=== PATIENT | female | born 1960 | race Hispanic/Latino ===

== ENCOUNTER 2023-01-31 00:01 | Observation (INO) | payer OTHER ==
[2023-01-31] MEDS ORDERED: ONDANSETRON 4 MG/2 ML VIAL ONE (01:22)
[2023-01-31] MEDS ORDERED: NA CHLORIDE 0.9% 1,000 ML ONE (01:22)
[2023-01-31] MEDS ORDERED: MORPHINE 2 MG/ML SYR ONE (01:22)
[2023-01-31] MEDS ORDERED: PANTOPRAZOLE 40 MG INJ ONE (01:22)
[2023-01-31 01:29] LABS: Absolute Lymphocytes (CBC) 2.1 K/uL (0.7-4.9); Hematocrit 34.8 % (36.0-45.0); Lymphocytes % 15.5 % (15.3-44.8); MCV 89.2 fL (80-100)
[2023-01-31 01:36] LABS: Protime INR 1.09
[2023-01-31 01:54] LABS: Albumin 4.1 g/dL (3.4-5.0); Bilirubin Direct 0.2 mg/dL (0-0.2); Bilirubin Indirect, Calculated 0.4 mg/dL (0.2-0.8); Bilirubin Total 0.6 mg/dL (0.2-1.0); Potassium 3.6 mEq/L (3.5-5.1); Protein, Total 7.6 g/dL (6.4-8.2); Troponin High Sensitivity 3.1 pg/mL (<58.9)
[2023-01-31] MEDS ORDERED: Magnesium Sulfate 2gm IVPB 2 G/50 ML BAG IV ONE (03:07)
--- NOTE | 2023-01-31 04:15 | ER ---
Nurse's Notes [facility] Name: Radha Greene Age: 62 yrs Sex: Female : 1960 Arrival Date: 01/31/2023 Time: 00:01 Bed 15 Private MD: Diagnosis: Hypo-osmolality and hyponatremia;Hypomagnesemia;Nausea with vomiting, unspecified Presentation: 01/31 00:16 Chief complaint: Patient's son or daughter states: granddaughter states, that her blood vc1 pressure was high 176/79 she already took her blood pressure medicine. She's been having really horrible headaches. really nauseous, has the shakes, and has been vomiting. She went to the Dr. today and they didn't find anything wrong. They gave her famotadine. Coronavirus screen: Vaccine status: Patient reports receiving the 2nd dose of the covid vaccine. plus two boosters; [employer] Client denies travel out of the [place] in the last 14 days. At this time, the client does not indicate any symptoms associated with coronavirus-19. Ebola Screen: Patient negative for fever greater than or equal to 101.5 degrees Fahrenheit, and additional compatible Ebola Virus Disease symptoms Patient denies exposure to infectious person. Patient denies travel to an Ebola-affected area in the 21 days before illness onset. No symptoms or risks identified at this time. Initial Sepsis Screen: Does the patient meet any 2 criteria? No. Patient's initial sepsis screen is negative. Does the patient have a suspected source of infection? No. Patient's initial sepsis screen is negative. Risk Assessment: Do you want to hurt yourself or someone else? Patient reports no desire to harm self or others. Onset of symptoms is unknown. 00:16 Method Of Arrival: Ambulatory vc1 00:16 Acuity: KYLIE 3 vc1 Triage Assessment: 00:29 General: Appears in no apparent distress. uncomfortable, ill, Behavior is calm, vc1 cooperative, appropriate for age. Pain: Complains of pain in forehead, occipital area and epigastric area Pain does not radiate. Pain currently is 10 out of 10 on a pain scale. Quality of pain is described as pressure. EENT: No deficits noted. No signs and/or symptoms were reported regarding the EENT system. Neuro: Reports headache. Cardiovascular: No deficits noted. Respiratory: Airway is patent Respiratory effort is even, unlabored, Respiratory pattern is regular, symmetrical. GI: Reports upper abdominal pain, diarrhea, epigastric pain, nausea, vomiting. : No deficits noted. No signs and/or symptoms were reported regarding the genitourinary system. Derm: No deficits noted. No signs and/or symptoms reported regarding the dermatologic system. Musculoskeletal: No deficits noted. No signs and/or symptoms reported regarding the musculoskeletal system. Historical: - Allergies: 00:25 No Known Allergies; vc1 - Home Meds: 00:25 Metformin Oral [Active]; amlodipine oral [Active]; Metoprolol Tartrate Oral [Active]; vc1 Hydrochlorothiazide Oral [Active]; Lisinopril Oral [Active]; - PMHx: 00:25 Hypertensive disorder; Diabetes mellitus; Anxiety; Depressive disorder; vc1 - PSHx: 00:25 section; vc1 - Immunization history:: Client reports receiving the 2nd dose of the Covid vaccine. - Social history:: Smoking status: Patient denies any tobacco usage or history of. Screenin:29 Abuse screen: Denies threats or abuse. Nutritional screening: No deficits noted. vc1 Tuberculosis screening: No symptoms or risk factors identified. 01:04 [facility] ED Fall Risk Assessment (Adult) History of falling in the last 3 months, lg3 including since admission No falls in past 3 months (0 pts). Assessment: 01:04 General: Appears in no apparent distress. comfortable, Behavior is calm, cooperative. lg3 Pain: Complains of pain in abdomen and face and occipital area. Neuro: No deficits noted. Mendoza Agitation-Sedation Scale (RASS): 0 - Alert and Calm Level of Consciousness is awake, alert, obeys commands, Oriented to person, place, time, situation. Cardiovascular: No deficits noted. Reports chest pain, lightheadedness, nausea, shortness of breath, Capillary refill < 3 seconds Clubbing of nail beds is absent JVD is absent Patient's skin is warm and dry. Respiratory: No deficits noted. Airway is patent Respiratory effort is even, unlabored, Respiratory pattern is regular, symmetrical. GI: No deficits noted. Abdomen is round non-distended, Reports upper abdominal pain, cramping, epigastric pain, nausea, vomiting. : No deficits noted. No signs and/or symptoms were reported regarding the genitourinary system. EENT: No deficits noted. No signs and/or symptoms were reported regarding the EENT system. Derm: No deficits noted. No signs and/or symptoms reported regarding the dermatologic system. Skin is intact, is healthy with good turgor, Skin is dry, Skin is normal, Skin temperature is warm. Musculoskeletal: No deficits noted. Circulation, motion, and sensation intact. Range of motion: intact in all extremities, Reports generalized weakness. 01:57 Reassessment: Patient appears in no apparent distress at this time. No changes from lg3 previously documented assessment. Patient and/or family updated on plan of care and expected duration. Pain level reassessed. Patient is alert, oriented x 3, equal unlabored respirations, skin warm/dry/pink. 05:36 Reassessment: Patient appears in no apparent distress at this time. No changes from lg3 previously documented assessment. Patient and/or family updated on plan of care and expected duration. Pain level reassessed. Patient is alert, oriented x 3, equal unlabored respirations, skin warm/dry/pink. Patient states feeling better. Patient states symptoms have improved. Vital Signs: 00:16 BP 150 / 77; Pulse 81; Resp 15; Temp 98.4; Pulse Ox 100% ; Weight 81.65 kg; Height 5 vc1 ft. 0 in. ; Pain 10/10; 01:57 BP 130 / 62; Pulse 69; Resp 16 S; Pulse Ox 100% on R/A; lg3 03:56 BP 116 / 61; Pulse 71; Resp 15 S; Pulse Ox 99% on R/A; lg3 05:36 BP 123 / 59; Pulse 69; Resp 16; Pulse Ox 99% on R/A; lg3 00:16 Body Mass Index 35.15 (81.65 kg, 152.4 cm) vc1 00:16 Pain Scale: Adult vc1 ED Course: 00:05 Patient arrived in ED. jj6 00:08 Des Singleton PA is PHCP. cp 00:08 Mehran Vergara MD is Attending Physician. cp 00:25 Triage completed. vc1 00:29 Arm band placed on left wrist. vc1 00:58 Emma Sheets, ZHENG is Primary Nurse. lg3 01:04 Patient has correct armband on for positive identification. Placed in gown. Bed in low lg3 position. Call light in reach. Side rails up X 1. Client placed on continuous cardiac and pulse oximetry monitoring. NIBP monitoring applied. air sampling and monitoring on. Door closed. Noise minimized. Warm blanket given. Family accompanied patient. 01:15 Basic Metabolic Panel Sent. lg3 01:15 CBC with Diff Sent. lg3 01:15 LFT's Sent. lg3 01:15 Magnesium Sent. lg3 01:15 PT-INR Sent. lg3 01:16 Troponin HS Sent. lg3 01:25 Inserted saline lock: 20 gauge in right wrist, using aseptic technique. Blood collected.lg3 01:48 XRAY Chest (1 view) In Process Unspecified. EDMS 01:59 Notified Nurse Practitioner and/or Physician Senior Payroll Manager of a critical lab result(s), Mag kl 1.0. 02:43 CT Abd/Pelvis - IV Contrast Only In Process Unspecified. EDMS 02:43 CT Head Brain wo Cont In Process Unspecified. EDMS 04:08 TSH Sent. lg3 04:08 Lipase Sent. lg3 04:14 Arvind Viveros MD is Hospitalizing Provider. cp 04:15 Octaviano Valdovinos MD is Hospitalizing Provider. la1 04:47 Arvind Viveros MD is Hospitalizing Provider. la1 05:37 No provider procedures requiring assistance completed. Patient admitted, IV remains in lg3 place. intact, No redness/swelling at site. Administered Medications: 01:25 Drug: NS 0.9% IV 500 ml Route: IV; Rate: 125 ml/hr; Site: right wrist; lg3 01:26 Drug: Ondansetron IVP 4 mg Route: IVP; Site: right wrist; lg3 02:44 Follow up: Response: No adverse reaction; Marked relief of symptoms lg3 01:26 Drug: morphine IVP or IV 2 mg Route: IVP; Infused Over: 4 mins; Site: right wrist; lg3 02:44 Follow up: Response: No adverse reaction; Marked relief of symptoms lg3 01:26 Drug: NS 0.9% IV 500 ml Route: IV; Rate: bolus; Site: right wrist; lg3 02:43 Follow up: Response: No adverse reaction; IV Status: Completed infusion; IV Intake: lg3 500ml 01:27 Drug: Pantoprazole IVP 40 mg Route: IVP; Site: right wrist; lg3 02:44 Follow up: Response: No adverse reaction; Marked relief of symptoms lg3 03:00 Drug: Magnesium Sulfate IVPB 2 grams Route: IVPB; Infused Over: 2 hrs; Site: right pf1 wrist; Medication: 05:36 VIS not applicable for this client. lg3 Intake: 02:43 IV: 500ml; Total: 500ml. lg3 Outcome: 04:14 Decision to Hospitalize by Provider. cp 05:37 Admitted to Med/surg accompanied by tech, via wheelchair, room 427, Report called to 3 Daly 05:37 Condition: stable 05:37 Instructed on the need for admit, Demonstrated understanding of instructions. 05:38 Patient left the ED. 3 Signatures: Dispatcher [employer] EDMS Bebe Box, Jb Cervantes RN, LOFTER-C LOFTER-Cla1 Des Singleton PA PA cp Gibson, Lacie, RN RN lg3 Deandra Sales [email or web address] Maryjo Cardenas RN RN vc1 Taisha Brewer RN RN pf1 Corrections: (The following items were deleted from the chart) 00:29 00:25 PSHx: None; vc1 vc1 03:11 03:00 Magnesium Sulfate IVPB 2 grams IVPB in right antecubital over 2 hrs pf1 pf1
--- NOTE | 2023-01-31 04:15 | EDPHYS ---
Physician Documentation [facility] Name: Radha Greene Age: 62 yrs Sex: Female : 1960 Arrival Date: 01/31/2023 Time: 00:01 Bed 15 Private MD: ED Physician Mehran Vergara HPI: 01/31 01:00 This 62 yrs old Female presents to ER via Ambulatory with complaints of High Blood cp Pressure, General Weakness. 01:00 The patient has elevated blood pressure and discovered this at home, with a home device.cp 01:00 Onset: The symptoms/episode began/occurred today. Associated signs and symptoms: cp Pertinent positives: chest pain, headache, nausea, vomiting, weakness. 01:00 Severity of symptoms: At its worst the blood pressure was 176 mm Hg. cp Historical: - Allergies: 00:25 No Known Allergies; vc1 - Home Meds: 00:25 Metformin Oral [Active]; amlodipine oral [Active]; Metoprolol Tartrate Oral [Active]; vc1 Hydrochlorothiazide Oral [Active]; Lisinopril Oral [Active]; - PMHx: 00:25 Hypertensive disorder; Diabetes mellitus; Anxiety; Depressive disorder; vc1 - PSHx: 00:25 section; vc1 - Immunization history:: Client reports receiving the 2nd dose of the Covid vaccine. - Social history:: Smoking status: Patient denies any tobacco usage or history of. ROS: 01:05 Constitutional: Negative for fever. cp 01:05 Eyes: Negative for injury, pain, redness, and discharge. cp 01:05 ENT: Negative for drainage from ear(s), ear pain, sore throat, difficulty swallowing, difficulty handling secretions. 01:05 Cardiovascular: Positive for chest pain. 01:05 Respiratory: Negative for cough, shortness of breath, wheezing. 01:05 Abdomen/GI: Positive for nausea and vomiting, Negative for diarrhea, constipation. 01:05 Skin: Negative for rash. 01:05 Neuro: Positive for weakness, Negative for altered mental status, numbness, syncope. 01:05 All other systems are negative. Exam: 01:08 ECG was reviewed by the Attending Physician. cp 01:10 Constitutional: The patient appears in no acute distress, alert, awake, cp non-diaphoretic, non-toxic, well developed, well nourished. 01:10 Head/Face: Normocephalic, atraumatic. cp 01:10 Eyes: Periorbital structures: appear normal, Pupils: equal, round, and reactive to light and accomodation, Extraocular movements: intact throughout, Conjunctiva: normal, no exudate, no injection, Sclera: no appreciated abnormality, Lids and lashes: appear normal, bilaterally. 01:10 ENT: External ear(s): are unremarkable, Nose: is normal, Mouth: Lips: moist, Oral mucosa: pink and intact, moist, Posterior pharynx: is normal, airway is patent, no erythema, no exudate. 01:10 Neck: ROM/movement: is normal, is supple, without pain, no range of motions limitations. 01:10 Chest/axilla: Inspection: normal. 01:10 Cardiovascular: Rate: normal, Rhythm: regular, Edema: is not appreciated, JVD: is not appreciated. 01:10 Respiratory: the patient does not display signs of respiratory distress, Respirations: normal, no use of accessory muscles, no retractions, labored breathing, is not present, Breath sounds: are clear throughout, no decreased breath sounds, no stridor, no wheezing. 01:10 Abdomen/GI: Inspection: abdomen appears normal, Bowel sounds: active, all quadrants, Palpation: soft, in all quadrants, mild abdominal tenderness, in the epigastric area and left upper quadrant, rebound tenderness, is not appreciated, involuntary guarding, is not appreciated. 01:10 Back: CVA tenderness, is absent. 01:10 Skin: cellulitis, is not appreciated, no rash present. 01:10 Neuro: Orientation: to person, place \T\ time. Mentation: is normal, Motor: moves all fours, strength is normal, Sensation: is normal. Vital Signs: 00:16 BP 150 / 77; Pulse 81; Resp 15; Temp 98.4; Pulse Ox 100% ; Weight 81.65 kg; Height 5 vc1 ft. 0 in. ; Pain 10; 01:57 BP 130 / 62; Pulse 69; Resp 16 S; Pulse Ox 100% on R/A; lg3 03:56 BP 116 / 61; Pulse 71; Resp 15 S; Pulse Ox 99% on R/A; lg3 05:36 BP 123 / 59; Pulse 69; Resp 16; Pulse Ox 99% on R/A; lg3 00:16 Body Mass Index 35.15 (81.65 kg, 152.4 cm) vc1 00:16 Pain Scale: Adult vc1 MDM: 00:24 Patient medically screened. cp 04:15 Data reviewed: vital signs, nurses notes, lab test result(s), EKG, radiologic studies, cp CT scan, plain films. 04:15 Consideration of Admission/Observation Patient was admitted/placed on observation. cp Management of patient was discussed with the following: Hospitalist: Jb Del Castillo NP will admit after discussion. I considered the following discharge prescriptions or medication management in the emergency department Medications were administered in the Emergency Department. See MAR. Independent interpretation of the following test(s) in the Emergency Department EKG: See my EKG interpretation above. Care significantly affected by the following chronic conditions: Diabetes, Hypertension. Counseling: I had a detailed discussion with the patient and/or guardian regarding: the historical points, exam findings, and any diagnostic results supporting the discharge/admit diagnosis, lab results, radiology results, the need for further work-up and treatment in the hospital. 01/31 00:46 Order name: Basic Metabolic Panel; Complete Time: 02:49 cp 01/31 02:49 Interpretation: Normal except: NA 125; CL 94; CO2 20; GLUC 132; BUN 21; CRE 1.08; GFR cp 58. 01/31 00:46 Order name: CBC with Diff; Complete Time: 02:49 cp 01/31 02:49 Interpretation: Normal except: WBC 13.30; HGB 11.5; HCT 34.8; SHEILA% 76.2; NEUT A 10.2. cp 01/31 00:46 Order name: LFT's; Complete Time: 02:49 cp 01/31 00:46 Order name: Magnesium; Complete Time: 02:49 cp 01/31 00:46 Order name: PT-INR; Complete Time: 02:49 cp 01/31 00:46 Order name: Troponin HS; Complete Time: 02:49 cp 01/31 04:03 Order name: Urine Osmolality la1 01/31 04:03 Order name: Urine Sodium Random la1 01/31 04:03 Order name: UAM la1 01/31 04:03 Order name: Osmolality, Serum; Complete Time: 04:43 la1 01/31 04:03 Order name: Lipase; Complete Time: 04:43 la1 01/31 04:04 Order name: TSH; Complete Time: 04:43 la1 01/31 00:46 Order name: XRAY Chest (1 view) cp 01/31 00:46 Order name: CT Abd/Pelvis - IV Contrast Only cp 01/31 00:46 Order name: CT Head Brain wo Cont cp 01/31 00:46 Order name: EKG; Complete Time: 00:48 cp 01/31 00:46 Order name: Cardiac monitoring; Complete Time: 01: cp 01/31 00:46 Order name: EKG - Nurse/Tech; Complete Time: 01:09 cp 01/31 00:46 Order name: IV Saline Lock; Complete Time: 01:15 cp 01/31 00:46 Order name: Labs collected and sent; Complete Time: 01:15 cp 01/31 00:46 Order name: O2 Per Protocol; Complete Time: 01: cp 01/31 00:46 Order name: O2 Sat Monitoring; Complete Time: 01:09 cp EC:08 Rate is 83 beats/min. Rhythm is regular. SC interval is normal. QRS interval is normal. cp QT interval is normal. T waves are Inverted in lead aVR. Interpreted by me. Reviewed by me. Administered Medications: 01:25 Drug: NS 0.9% IV 500 ml Route: IV; Rate: 125 ml/hr; Site: right wrist; lg3 01:26 Drug: Ondansetron IVP 4 mg Route: IVP; Site: right wrist; lg3 02:44 Follow up: Response: No adverse reaction; Marked relief of symptoms lg3 01:26 Drug: morphine IVP or IV 2 mg Route: IVP; Infused Over: 4 mins; Site: right wrist; lg3 02:44 Follow up: Response: No adverse reaction; Marked relief of symptoms lg3 01:26 Drug: NS 0.9% IV 500 ml Route: IV; Rate: bolus; Site: right wrist; lg3 02:43 Follow up: Response: No adverse reaction; IV Status: Completed infusion; IV Intake: lg3 500ml 01:27 Drug: Pantoprazole IVP 40 mg Route: IVP; Site: right wrist; lg3 02:44 Follow up: Response: No adverse reaction; Marked relief of symptoms lg3 03:00 Drug: Magnesium Sulfate IVPB 2 grams Route: IVPB; Infused Over: 2 hrs; Site: right pf1 wrist; Disposition: 19:30 Co-signature as Attending Physician, Mehran Vergara MD I agree with the assessment and kdr plan of care. Disposition Summary: 01/31/23 04:14 Hospitalization Ordered Hospitalization Status: Inpatient Admission cp Location: Telemetry/MedSurg (observation) cp Condition: Stable cp Problem: new cp Symptoms: have improved cp Bed/Room Type: Standard cp Room Assignment: [facility](01/31/23 04:44) Provider: Arvind Viveros(01/31/23 04:47) [email or web address] Diagnosis - Hypo-osmolality and hyponatremia cp - Hypomagnesemia cp - Nausea with vomiting, unspecified cp Forms: - Medication Reconciliation Form cp - SBAR form cp Signatures: Dispatcher [employer] EDMS Mehran Vergara MD MD kdr Jb Del Castillo, LAY OUT INSPECTOR-C LAY OUT INSPECTOR-Cla1 Des Singleton PA PA cp Garcia, Cindy, RN RN cg Emma Sheets RN RN lg3 Maryjo Cardenas RN RN vc1 Taisha Brewer RN RN pf1 Corrections: (The following items were deleted from the chart) 00:29 00:25 PSHx: None; vc1 vc1 04:15 04:14 Arvind Viveros cp la1 04:44 04:14 cp cg 04:47 04:15 Octaviano Valdovinos la1 la1 02/01 05:25 07/09 01:00 Associated signs and symptoms: Pertinent positives: headache, nausea, cp vomiting, cp
[2023-01-31 04:31] LABS: Thyroid Stimulating Hormone 2.18 uIU/mL (0.358-3.740)
--- NOTE | 2023-01-31 04:55 | P.HP ---
Certification for Inpatient Patient admitted to: Inpatient With expected LOS: >2 Midnights Patient will require the following post-hospital care: None Practitioner: I am a practitioner with admitting privileges, knowledge of patient current condition, hospital course, and medical plan of care. Services: Services provided to patient in accordance with Admission requirements found in Title 42 Section 412.3 of the Code of Federal Regulations <MagdaleneJb Milligan - Last Filed: 01/31/23 04:51> Patient History Date of Service: 01/31/23 Reason for admission: Hyponatremia, hypomagnesemia History of Present Illness: 62-year-old female with history of [id number] diabetes, hypertension, hyperlipidemia, neuropathy presents to the emergency department chief complaint of nausea, vomiting, tremors, headache, hypertension. She reports for the past 3 days or so she has been having some mild abdominal pain as well as diarrhea, nausea. In the past she has been diagnosed with gastritis. She was evaluated in the emergency department her labs were significant for hyponatremia sodium 125 chloride 94 bicarb 20 serum osmolality 264 magnesium 1.0 white blood cell count 13.3 hemoglobin 11.[address] abdomen pelvis was performed which was negative for acute findings, CT head also negative for acute findings. No medications reviewed patient does take hydrochlorothiazide in addition to other antihypertensive agents. This is likely contributing to her symptoms/hyponatremia. In the ER she was given Pr otonix, 500 cc NS bolus, NS at 125 an hour, Zofran, morphine, 2 g of IV magnesium her symptoms have improved at this time. ED provider wishes to admit for hyponatremia, hypomagnesemia, nausea/vomiting. - Past Medical/Surgical History -: Mgg-[id number] diabetes -: Hypertension -: Hyperlipidemia -: Gastritis -: Neuropathy Past Surgical History: Reviewed- Non-Contributory Psychosocial/ Personal History: Patient lives in [place], is here visiting family. - Family History Family History: Reviewed- Non-Contributory - Social History Smoking Status: Never smoker Alcohol use: No CD- Drugs: No Caffeine use: Yes Place of Residence: Home <Jb Del Castillo - Last Filed: 01/31/23 04:51> Date of Service: 01/31/23 <Arvind Viveros - Last Filed: 01/31/23 16:37> Review of Systems 10-point ROS is otherwise unremarkable Gastrointestinal: Nausea, Abdominal Pain, Diarrhea, Distention Genitourinary: Frequency <Jb Del Castillo - Last Filed: 01/31/23 04:51> Physical Examination - Physical Exam General: Alert, In no apparent distress, Oriented x3, Obese HEENT: Atraumatic, PERRLA, Mucous membr. moist/pink, EOMI, Sclerae nonicteric Neck: Supple, 2+ carotid pulse no bruit, No LAD, Without JVD or thyroid abnormality Respiratory: Clear to auscultation bilaterally, Normal air movement Cardiovascular: Regular rate/rhythm, Normal S1 S2 Capillary refill: <2 Seconds Gastrointestinal: Normal bowel sounds, Tenderness (Mild generalized abdominal tenderness, worse left upper quadrant) Musculoskeletal: No tenderness Integumentary: No rashes Neurological: Normal speech, Normal strength at 5/5 x4 extr, Normal tone, Normal affect - Studies Laboratory Data (last 24 hrs) 01/31/23 01:15: Lipase 48 01/31/23 01:15: PT 12.0, INR 1.09 01/31/23 01:15: WBC 13.30 H, Hgb 11.5 L, Hct 34.8 L, Plt Count 292 01/31/23 01:15: Sodium 125 L, Potassium 3.6, BUN 21 H, Creatinine 1.08 H, Glucose 132 H, Magnesium 1.0 L*, Total Bilirubin 0.6, AST 30, ALT 44, Alkaline Phosphatase 46 <Jb Del Castillo - Last Filed: 01/31/23 04:51> - Studies Laboratory Data (last 24 hrs) 01/31/23 01:15: Lipase 48 01/31/23 01:15: PT 12.0, INR 1.09 01/31/23 01:15: WBC 13.30 H, Hgb 11.5 L, Hct 34.8 L, Plt Count 292 01/31/23 01:15: Sodium 125 L, Potassium 3.6, BUN 21 H, Creatinine 1.08 H, Glucose 132 H, Magnesium 1.0 L*, Total Bilirubin 0.6, AST 30, ALT 44, Alkaline Phosphatase 46 <Arvind Viveros - Last Filed: 01/31/23 16:37> Assessment and Plan - Plan Assessment: Hyponatremia, hypomagnesemia Nausea/vomiting/diarrhea Diabetes mellitus type [id number] Hypertension Hyperlipidemia Neuropathy Plan: Hyponatremia, hypomagnesemia Nausea/vomiting/diarrhea Hydrochlorothiazide likely contributing, will hold this medication. Also poor oral intake with nausea recently she has had gastritis in the past. Continue IV Protonix twice daily, CT negative for acute findings. Counseled to follow-up with GI when she is back to [place] plan for endoscopy. Clear liquid diet, advance as tolerated. Continue gentle NS with repeat chemistries this morning, magnesium replaced in ED, protocol in place. We will repeat with chemistries morning. Diabetes mellitus type [id number] ACHS Accu-Chek, sign scale insulin. Hypertension Home medication continued, hydrochlorothiazide being held, may need increase of her dose of other home medications, possibly amlodipine or metoprolol succinate. We will need to monitor blood pressure to determine need. Hyperlipidemia Statin continued Neuropathy Gabapentin continued. DVT PPX: Lovenox Code status: Full Discharge Plan: Home Plan to discharge in: 48 Hours - Advance Directives Does patient have a Living Will: No Does patient have a Durable POA for Healthcare: No - Code Status/Comfort Care Code Status Assessed: Yes (Full code) Critical Care: No Time Spent Managing Pts Care (In Minutes): 55 <Jb Del Castillo - Last Filed: 01/31/23 04:51> - Plan Patient seen and examined on rounds this morning. She reports no bowel movement since arrival to the floor. Has not vomited since admission, continues with some slight nausea, but overall feels she is improving No abdominal tenderness on exam, blood pressure low/borderline Hold antihypertensives Patient able to tolerate liquid diet, advance as tolerated DC IV fluids KATELYN resolved, hyponatremia improved Recheck BMP this evening Potential discharge home tomorrow <Arvind Viveros - Last Filed: 01/31/23 16:37>
[2023-01-31 05:24] LABS: Specific Gravity 1.014 (1.005-1.030); Urine Bacteria None Seen /HPF (<20); Urine Bilirubin NEGATIVE (Negative); Urine Blood Negative (Negative); Urine Clarity Clear (Clear); Urine Color Colorless (Yellow); Urine Glucose NEGATIVE (Negative); Urine Protein NEGATIVE (Negative); Urine RBC None Seen /HPF (None Seen); Urine Urobilinogen Normal (Normal)
[2023-01-31] MEDS ORDERED: SODIUM CHLORIDE 0.9% 10ML INJ IV PRN (05:32)
[2023-01-31] MEDS ORDERED: NA CHLORIDE 0.9% 1,000 ML IV SCH (05:32)
[2023-01-31] MEDS ORDERED: ONDANSETRON 4 MG/2 ML VIAL IV PRN (05:32)
[2023-01-31] MEDS: METOPROLOL XL 50 MG TAB PO SCH (05:49)
[2023-01-31 06:44] VITALS: O2SAT 98; BMI 35.4
--- NOTE | 2023-01-31 07:28 | P.PN ---
Date of Service: 02/01/23 Subjective: ROS: 10 point ROS as noted above, otherwise negative Physical Exam: GEN: Alert, oriented, NAD HEENT: Normal conjunctiva, sclera anicteric CV: Regular rate and rhythm, no edema Pulm: Nonlabored respirations on room air ABD: Soft, nontender, nondistended MSK: No joint tenderness Integumentary: No rashes Neuro: Normal speech, normal affect vitals reviewed Problem List: Hyponatremia, hypomagnesemia Nausea/vomiting/diarrhea NIDDM2 Hypertension Hyperlipidemia Neuropathy Hyponatremia, hypomagnesemia Nausea/vomiting/diarrhea HCTZ likely contributing, will hold this medication. Also poor oral intake with nausea recently she has had gastritis in the past. Counseled to follow-up with GI when she is back to [place] plan for endoscopy. CT abdomen (01/31): negative for acute findings. Continue IV Protonix twice daily Clear liquid diet, advance as tolerated. repeat labs Hypertension continue home medications, may need increase of her dose of other home medications, possibly amlodipine or metoprolol succinate. hold HCTZ NIDDM2 ACHS Accu-Chek, SSI Hyperlipidemia continue statin Neuropathy Continue gabapentin VTE: Lovenox Code: Full Dispo: home ~2 days
[2023-01-31] MEDS: INSULIN -REGULAR HUMAN 50 UNIT/0.5 ML ML SQ SCH ×4 (07:30→21:00)
[2023-01-31] MEDS ORDERED: ACETAMINOPHEN 500 MG TAB PO PRN (07:32)
[2023-01-31] MEDS: ENOXAPARIN 40 MG/0.4 ML SQ SCH (07:59)
[2023-01-31] MEDS: ASPIRIN EC 81 MG TAB PO SCH (08:00)
[2023-01-31] MEDS: GABAPENTIN 300 MG CAP PO SCH ×3 (08:00→21:01)
[2023-01-31 08:28] LABS: Magnesium 1.9 mg/dL (1.6-2.4); Potassium 3.9 mEq/L (3.5-5.1); Troponin High Sensitivity 5.7 pg/mL (<58.9)
[2023-01-31] MEDS: AMLODIPINE 2.5 MG TAB PO SCH (09:00)
[2023-01-31] MEDS ORDERED: lisinopriL 20 MG TAB PO SCH (09:00)
[2023-01-31] MEDS: PANTOPRAZOLE 40 MG INJ IVP SCH ×2 (09:31→21:01)
[2023-01-31 15:37] LABS: Potassium 4.6 mEq/L (3.5-5.1); Troponin High Sensitivity 4.3 pg/mL (<58.9)
[2023-01-31] MEDS ORDERED: ATORVASTATIN 10 MG TAB PO SCH (21:00)
[2023-02-01] MEDS: METOPROLOL XL 50 MG TAB PO SCH (05:30)
[2023-02-01 06:57] LABS: Absolute Lymphocytes (CBC) 2.2 K/uL (0.7-4.9); Hematocrit 35.1 % (36.0-45.0); Lymphocytes % 32.4 % (15.3-44.8); MCV 90.2 fL (80-100); MPV 8.1 fL (7.6-11.3); RBC Red Blood Cell Count 3.89 M/uL (3.86-4.86)
[2023-02-01 07:07] LABS: Magnesium 1.8 mg/dL (1.6-2.4); Potassium 4.6 mEq/L (3.5-5.1)
[2023-02-01] MEDS ORDERED: NA CHLORIDE 0.9% 500 ML IV ONE (07:14)
[2023-02-01] MEDS: INSULIN -REGULAR HUMAN 50 UNIT/0.5 ML ML SQ SCH (07:30)
--- NOTE | 2023-02-01 07:58 | P.DS ---
Admission Date: 01/31/23 Discharge Date: 02/01/23 Reason for Admission: Hyponatremia, hypomagnesemia Brief History of Present Illness: 62 yo F, PMH: [id number] diabetes, hypertension, hyperlipidemia, neuropathy Patient presents to the emergency department chief complaint of nausea, vomiting, tremors, headache, hypertension. She reports for the past 3 days or so she has been having some mild abdominal pain as well as diarrhea, nausea. In the past she has been diagnosed with gastritis. She was evaluated in the emergency department her labs were significant for hyponatremia sodium 125 chloride 94 bicarb 20 serum osmolality 264 magnesium 1.0 white blood cell count 13.3 hemoglobin 11.5 urinalysis is pending Imaging was negative for acute findings. Patient does take hydrochlorothiazide in addition to other antihypertensive agents. This is likely contributing to her symptoms/hyponatremia. In the ER she was given Protonix, 500 cc NS bolus, NS at 125 an hour, Zofran, morphine, 2 g of IV magnesium her symptoms have improved at this time. Hospital Course: Problem List: Hyponatremia, hypomagnesemia Nausea/vomiting/diarrhea NIDDM2 Hypertension Hyperlipidemia Neuropathy Patient presented with nausea, vomiting, diarrhea. CT Abdomen/Head were both negative for any acute findings. She was found to be hyponatremic with a mild elevation of her Creatinine. She was admitted and treated with IV fluids and her diet was advanced. Her electrolyte abnormalities are secondary to dehydration in combination of her HCTZ/antihypertensive medications. In addition to her IV fluids, her HCTZ/antihypertensives were held during hospitalization and her BP remained in the low-normal range. On day of discharge, she was tolerating soft diet without any nausea or abdominal pain. She remained afebrile and her mild leukocytosis resolved without need of antibiotics. No bacterial infection suspected She was deemed stable for discharge home. Advised to continue to hold her blood pressure medications. Check blood pressure daily at home, and once consistently greater than 130, can restart her medications in step mane fashion. Recommend patient to follow up with GI for endoscopy in the near future. Follow up: PCP in 1 week GI within a few weeks Physical Exam: GEN: Alert, oriented, NAD HEENT: Normal conjunctiva, sclera anicteric CV: Regular rate and rhythm, no edema Pulm: Nonlabored respirations on room air ABD: Soft, nontender, nondistended MSK: No joint tenderness Integumentary: No rashes Neuro: Normal speech, normal affect Vital Signs/Physical Exam: Temp Pulse Resp BP Pulse Ox 97.9 F 63 16 94/53 L 99 02/01/23 04:00 02/01/23 05:30 02/01/23 04:00 02/01/23 05:30 02/01/23 04:00 Laboratory Data at Discharge: WBC 6.70 thou/uL (4.3-10.9) 02/01/23 06:22 Hgb 11.6 g/dL (12.0-15.0) L 02/01/23 06:22 Hct 35.1 % (36.0-45.0) L 02/01/23 06:22 Plt Count 266 thou/uL (152-406) 02/01/23 06:22 PT 12.0 SECONDS (9.5-12.5) 01/31/23 01:15 INR 1.09 01/31/23 01:15 Sodium 135 mEq/L (136-145) L 02/01/23 06:22 Potassium 4.6 mEq/L (3.5-5.1) 02/01/23 06:22 BUN 13 mg/dL (7-18) 02/01/23 06:22 Creatinine 0.82 mg/dL (0.55-1.02) 02/01/23 06:22 Glucose 108 mg/dL (74-106) H 02/01/23 06:22 Magnesium 1.8 mg/dL (1.6-2.4) 02/01/23 06:22 Total Bilirubin 0.6 mg/dL (0.2-1.0) 01/31/23 01:15 AST 30 U/L (15-37) 01/31/23 01:15 ALT 44 U/L (13-56) 01/31/23 01:15 Alkaline Phosphatase 46 U/L (45-117) 01/31/23 01:15 Lipase 48 U/L (13-75) 01/31/23 01:15 Home Medications: Amlodipine [Norvasc*] 2.5 mg PO BID 01/31/23 Aspirin 81 mg PO DAILY 01/31/23 Citalopram [Celexa] 10 mg PO DAILY 01/31/23 Famotidine [Pepcid] 20 mg PO BID 01/31/23 Gabapentin 300 mg PO TID 01/31/23 Lisinopril [Zestril] 40 mg PO BID 01/31/23 Metformin HCl 1,000 mg PO BID 01/31/23 Metoprolol Succinate 50 mg PO DAILY 01/31/23 Ondansetron [Zofran] 4 mg PO Q6H PRN 01/31/23 Pravastatin [Pravachol] 40 mg PO BEDTIME 01/31/23 Physician Discharge Instructions: Patient presented with nausea, vomiting, diarrhea. CT Abdomen/Head were both negative for any acute findings. She was found to be hyponatremic with a mild elevation of her Creatinine. She was admitted and treated with IV fluids and her diet was advanced. Her electrolyte abnormalities are secondary to dehydration in combination of her HCTZ/antihypertensive medications. In addition to her IV fluids, her HCTZ/antihypertensives were held during hospitalization and her BP remained in the low-normal range. On day of discharge, she was tolerating soft diet without any nausea or abdominal pain. She remained afebrile and her mild leukocytosis resolved without need of antibiotics. No bacterial infection suspected She was deemed stable for discharge home. Advised to continue to hold her blood pressure medications. Check blood pressure daily at home, and once consistently greater than 130, can restart her medications in step mane fashion. Recommend patient to follow up with GI for endoscopy in the near future. Follow up: PCP in 1 week GI within a few weeks Time spent managing pt's care (in minutes): 45
[2023-02-01] MEDS: PANTOPRAZOLE 40 MG INJ IVP SCH (08:08)
[2023-02-01] MEDS: GABAPENTIN 300 MG CAP PO SCH ×2 (08:08→08:11)
[2023-02-01] MEDS: ENOXAPARIN 40 MG/0.4 ML SQ SCH (08:08)
[2023-02-01] MEDS: ASPIRIN EC 81 MG TAB PO SCH (08:08)
[2023-02-01] MEDS: AMLODIPINE 2.5 MG TAB PO SCH (08:09)
[2023-02-01 10:36] VITALS: BP 108/60; TEMP 97
--- NOTE | 2023-02-01 14:20 | RAD REPORT ---
EXAM DESCRIPTION: CT - Head Brain Wo Cont - 01/31/2023 6:29 am CLINICAL HISTORY: 62 years, Female, HEADACHE COMPARISON: None. FINDINGS: Multiple transaxial tomograms of the brain were obtained from the base of the skull to the vertex without contrast. 2-D multiplanar reformats and the coronal and sagittal plane were performed and reviewed. This exam was performed according to our departmental dose-optimization protocol, which includes auto mated exposure control, adjustment of the mA and/or kV according to patient size and/or use of iterat francis reconstruction technique. Brain parenchyma as well as the sotelo and white matter differentiation demonstrate to be unremarkable. There is no midline shift and/or mass effect. There is no evidence for acute hemorrhage. There are n o focal areas of hypodensities. Lateral ventricles and cisterns displace normal appearance. No intr a or extra axial fluid collections were seen. The calvarium is intact with no evidence for fracture. The visualized portions of the paranasal sinuses and orbits demonstrate to be clear. IMPRESSION: No acute intracranial hemorrhage identified. Unremarkable CT scan of the head without contrast. Electronically signed by: Zac Altamirano MD 01/31/2023 3:36 AM CDT Due to temporary technical issues with the PACS/Fluency reporting system, reports are being signed by the in house radiologist without review as a courtesy to ensure prompt reporting. The interpreting r adiologist is fully responsible for the content of the report.
--- NOTE | 2023-02-01 14:24 | RAD REPORT ---
EXAM DESCRIPTION: CT - Abdomen Pelvis W Contrast - 01/31/2023 6:29 am CLINICAL HISTORY: 62 years, Female, ABD PAIN COMPARISON: None TECHNIQUE: Contrast-enhanced images of the abdomen and pelvis were performed utilizing 5 mm slice th ickness at 5 mm interval reconstruction from the lung bases to the ischial tuberosities after the adm inistration of IV contrast. In addition multiplanar reformats in the coronal and sagittal plane were obtained and reviewed. This exam was performed according to our departmental dose-optimization protocol, which includes auto mated exposure control, adjustment of the mA and/or kV according to patient size and/or use of iterat francis reconstruction technique. FINDINGS: The lung bases demonstrate to be clear. The liver demonstrates slight decreased attenuation corresponding to mild fatty infiltration. Otherwi se the liver, pancreas, spleen and adrenal glands demonstrate to be unremarkable, no focal lesions ar e noted. The gallbladder demonstrate to be within normal limits. There is no evidence for significant inflammatory changes. The common bile duct demonstrate to be within normal limits. The kidneys demonstrate normal uptake of contrast media. No evidence for nephrolithiasis and/or hydro nephrosis. There is a probable small cyst within the midpole left kidney measuring 0.7 cm on image 29 . Grossly the unopacified stomach, small bowel and large bowel demonstrate to be within normal limits. There is no evidence for bowel dilatation/or free air. The appendix was not visualized although n o significant inflammatory changes are seen within the right lower quadrant. The left site colon demo nstrate to be unremarkable. The urinary bladder demonstrate to be unremarkable. The uterus is absent. There are no adnexal mass es. The aorta demonstrate minimal atheromatous plaque at the aortic bifurcation. There is no retr operitoneal lymphadenopathy. There is no evidence for ascites/or abnormal fluid collections. The rest of the soft tissue and bony structures are within normal limits. IMPRESSION: No acute intra-abdominal process. Mild fatty infiltration of the liver. Status post hysterectomy. Electronically signed by: Zac Altamirano MD 01/31/2023 3:32 AM CDT Due to temporary technical issues with the PACS/Fluency reporting system, reports are being signed by the in house radiologist without review as a courtesy to ensure prompt reporting. The interpreting r adiologist is fully responsible for the content of the report.
--- NOTE | 2023-02-01 14:25 | RAD REPORT ---
EXAM DESCRIPTION: RAD - Chest Single View - 01/31/2023 1:46 am CLINICAL HISTORY: 62 years, Female, epigastric pain COMPARISON: None. FINDINGS: Single view of the chest was obtained portable. No prior films are available for compariso n. The cardiomediastinal silhouette demonstrate to be unremarkable. The heart is not enlarged. The th oracic aorta is unremarkable. The pulmonary vasculature is normal distribution. Costophrenic angles a re sharp. No areas of consolidation or masses are seen. The rest of the soft tissue and bony stru ctures demonstrate to be unremarkable. IMPRESSION: NO ACUTE CARDIOPULMONARY DISEASE SEEN. Electronically signed by: Zac Altamirano MD 01/31/2023 2:02 AM CDT Due to temporary technical issues with the PACS/Fluency reporting system, reports are being signed by the in house radiologist without review as a courtesy to ensure prompt reporting. The interpreting r adiologist is fully responsible for the content of the report.
--- NOTE | 2023-02-01 17:13 | EKG ---
Test Date: 2023-01-31 Test Time: 01:00:30 School Counsellor: ABRAHAM MEASUREMENT RESULTS: Intervals: Rate: 83 IN: 140 QRSD: 90 QT: 382 QTc: 448 [place]: P: 61 IN: 140 QRS: 41 T: 39 INTERPRETIVE STATEMENTS: Normal sinus rhythm Normal ECG No previous ECG available for comparison Electronically Signed On 02-01-23 17:11:27 CDT by Garo Mann
== END 2023-02-01 10:38 | disposition home or self-care (01) ==
LOC: ER 00:01 → INTOOBSV 04:42 → 4TH 04:42
PROVIDERS: ADMIT Hospitalist; ATTEND Hospitalist
DX: E87.1 Hypo-osmolality and hyponatremia (principal); E83.42 Hypomagnesemia; I10 Essential (primary) hypertension; E78.5 Hyperlipidemia, unspecified; R11.2 Nausea with vomiting, unspecified; R51.9 Headache, unspecified; R19.7 Diarrhea, unspecified; E11.40 Type 2 diabetes mellitus with diabetic neuropathy, unspecified
CPT/HCPCS: 96361; 93005; 85025 ×2; 81001; 80048 ×4; 36415 ×2; 83735 ×3; 85610; 84300; 82947 ×4; 80076; 84443; 84484 ×3; 83690; 83930; 83935; 70450; 74177; 71045; 96375; 96374; 99285; Q9967; J3475; C9113 ×4; J1650 ×2; J2270; J2405; J7040 ×2; J7030; G0378